=== PATIENT | male | born 1960 | race Caucasian/White ===

== ENCOUNTER → 2017-08-24 | Outpatient (CLI) | payer MEDICARE | LOC: M OUTALCOH 08:24 | DX: Z13.9 Encounter for screening, unspecified (principal); F10.20 Alcohol dependence, uncomplicated ==

== ENCOUNTER → 2018-04-27 | Outpatient (REF) | payer MEDICARE, OTHER ==
[2018-04-27 12:36] LABS: HEMATOCRIT 45.8 % (42.0-52.0); HEMOGLOBIN 16.1 g/dl (13.5-17.5); MEAN CORPUSCULAR HEMOGLOBIN 35.2 pg (27.0-33.0); MEAN CORPUSCULAR HGB CONC 35.2 g/dl (32.0-36.5); PLATELET COUNT, AUTOMATED 111 10^3/uL (150-450); RED BLOOD COUNT 4.58 10^6/uL (4.30-6.10); WHITE BLOOD COUNT 3.4 10^3/uL (4.0-10.0)
[2018-04-27 12:50] LABS: ALBUMIN 3.9 GM/DL (3.2-5.2); ALT/SGPT 195 U/L (12-78); BILIRUBIN,TOTAL 0.6 MG/DL (0.2-1.0); BLOOD UREA NITROGEN 9 MG/DL (7-18); CARBON DIOXIDE LEVEL 28 MEQ/L (21-32); CHLORIDE LEVEL 102 MEQ/L (98-107); CHOLESTEROL LEVEL 261 MG/DL (<200); CHOLESTEROL RISK RATIO 6.692 (<5); CREATININE FOR GFR 0.81 MG/DL (0.70-1.30); GLOMERULAR FILTRATION RATE > 60.0 (>56); GLUCOSE, FASTING 99 MG/DL (70-100); HDL CHOLESTEROL 39 MG/DL (>40); LDL CHOLESTEROL 189 MG/DL (<100); NON-HDL-C 222 MG/DL; POTASSIUM SERUM 4.3 MEQ/L (3.5-5.1); SODIUM LEVEL 138 MEQ/L (136-145); THYROID STIMULATING HORMONE 0.987 uIU/ML (0.358-3.740); TOTAL PROTEIN 8.3 GM/DL (6.4-8.2); TRIGLYCERIDES LEVEL 163 MG/DL (<150)
[2018-04-27 13:44] LABS: HEPATITIS C VIRUS ABY INDEX > 11.0 INDEX (<0.8)
[2018-05-02 14:09] LABS: CYCLIC CITRULLINATED PEPTIDE 9 units (0-19); HEPATITIS C QUANTITATION 221330 IU/mL (.); HEPATITIS C VIRUS GENOTYPE 1a (.)
== END ==
LOC: M SFHCPLAZ 10:32
PROVIDERS: ATTEND Nurse Practitioner Adult Health
DX: Z00.00 Encounter for general adult medical examination without abnormal findings (principal); Z13.220 Encounter for screening for lipoid disorders; F17.210 Nicotine dependence, cigarettes, uncomplicated; F32.9 Major depressive disorder, single episode, unspecified; G89.4 Chronic pain syndrome; F10.20 Alcohol dependence, uncomplicated; K22.719 Barrett's esophagus with dysplasia, unspecified; Z23 Encounter for immunization; M54.31 Sciatica, right side; I10 Essential (primary) hypertension; G47.00 Insomnia, unspecified; Q27.30 Arteriovenous malformation, site unspecified; Z86.19 Personal history of other infectious and parasitic diseases; Z87.39 Personal history of other diseases of the musculoskeletal system and connective tissue
CPT/HCPCS: 36415; 80053; 80061; 84443; 85027; 86200; 86431; 86803; 87521; 87522; 87902; 90682; 99406; G0008; G0463

== ENCOUNTER → 2018-06-02 | Outpatient (REF) | payer MEDICARE, OTHER ==
[2018-06-02 13:08] LABS: INR 0.95; PROTHROMBIN TIME 12.8 SECONDS (12.1-14.4)
[2018-06-03 08:41] LABS: HEPATITIS A IgG TOTAL Positive (Negative); HEPATITIS B CORE ANTIBODY IGG Negative (Negative)
[2018-06-03 14:46] LABS: HEPATITIS B SURFACE ANTIBODY NEGATIVE (POSITIVE); HEPATITIS B SURFACE ANTIGEN NEGATIVE (NEGATIVE)
[2018-06-13 08:55] LABS: HIV 1&2 SCREEN CENTAUR REACTIVE (NEGATIVE)
== END ==
LOC: M SFHCPLAZ 09:52
PROVIDERS: ATTEND Internal Medicine Infectious Disease
DX: B18.2 Chronic viral hepatitis C (principal); F32.9 Major depressive disorder, single episode, unspecified; Z86.59 Personal history of other mental and behavioral disorders
CPT/HCPCS: 36415; 82105; 85610; 86704; 86706; 86708; 87340; 87389; G0463

== ENCOUNTER → 2018-06-16 | Outpatient (REF) | payer OTHER | LOC: M SFHCPLAZ 13:23 | PROVIDERS: ATTEND Internal Medicine Infectious Disease | DX: B18.2 Chronic viral hepatitis C (principal) | CPT/HCPCS: 81596; 90471; 90739; G0463 ==

== ENCOUNTER → 2018-06-21 | Outpatient (CLI) | payer MEDICARE, OTHER ==
--- NOTE | 2018-06-21 10:27 | REP ---
Abdominal right upper quadrant ultrasound in a patient with hepatitis C: There are no comparisons. There are a few tiny gallbladder calculi. There is gallbladder wall thickening up to 5.7 mm, compatible with edema or fibrosis. There is no pericholecystic fluid. There is no intrahepatic or extrahepatic biliary duct dilatation. The common biliary duct measures 2.4 mm in diameter. The hepatic parenchyma is hyperechoic compatible with hepato steatosis. No hepatic masses are identified. The visualized areas of the pancreatic body and head are unremarkable. The right kidney measures 9.9 x 5.7 x 4.4 cm and is normal size. There is no right renal calculus, hydronephrosis, mass or cyst. Impression: Hepato steatosis. No hepatic masses are identified. Gallbladder wall thickening, edema versus fibrosis. There are a few small gallbladder calculi. No biliary duct dilatation. Electronically Signed by Jose Hernandez MD 06/21/2018 10:19 A
== END ==
LOC: M RAD 08:41
PROVIDERS: ATTEND Internal Medicine Infectious Disease
DX: B18.2 Chronic viral hepatitis C (principal); K80.20 Calculus of gallbladder without cholecystitis without obstruction; K75.81 Nonalcoholic steatohepatitis (NASH); K82.8 Other specified diseases of gallbladder

== ENCOUNTER → 2018-07-14 | Outpatient (REF) | payer OTHER | LOC: M SFHCPLAZ 10:23 | PROVIDERS: ATTEND Internal Medicine Infectious Disease | DX: B18.2 Chronic viral hepatitis C (principal); Z53.9 Procedure and treatment not carried out, unspecified reason ==

== ENCOUNTER → 2018-08-01 | Outpatient (CLI) | payer OTHER ==
[2018-08-01 12:30] LABS: PERCENT SATURATION 51.3 % (19.7-50.0)
[2018-08-02 14:12] LABS: CERULOPLASMIN 28.2 mg/dL (16.0-31.0)
[2018-08-04 00:10] LABS: AFP TUMOR TOTAL 4.4 ng/mL (0.0-8.0); ANCA-ATYPICAL <1:20 titer (Neg:<1:20); ANTI-MITOCHONDRIAL ANTIBODY <20.0 Units (0.0-20.0); ANTINUCLEAR ANTIBODIES DIRECT Negative (Negative); CYTOPLASMIC NEUTROP AB ANCA-C <1:20 titer (Neg:<1:20); PERINUCLEAR AB ANCA-P <1:20 titer (Neg:<1:20)
== END ==
LOC: M LAB 11:18
PROVIDERS: ATTEND Internal Medicine Gastroenterology
DX: K22.719 Barrett's esophagus with dysplasia, unspecified (principal); K70.30 Alcoholic cirrhosis of liver without ascites

== ENCOUNTER 2018-08-30 10:42 | Day surgery (SDC) | payer OTHER ==
[~2018-08-30] VITALS: Ht 175.3 cm; Wt 76.7 kg
[~2018-08-30 10:42] MED LIST: NS 1,000 ML IV ONE
[2018-08-30] MEDS ORDERED: TRAZ1TAB14 PO (11:45)
[2018-08-30] MEDS ORDERED: EPCL1TAB PO (11:45)
[2018-08-30] MEDS ORDERED: PROPOFOL 500 MG/50 ML VIAL As Ordered ONE (12:16)
[2018-08-30] MEDS ORDERED: LIDOCAINE 2% INJ 100 MG/5 ML SDV (FOR ANES.) As Ordered ONE (12:19)
--- NOTE | 2018-08-30 13:08 | ROOR ---
Patient Name: Vicente Kyle Procedure Date: 08/30/2018 12:53 PM Date of : 1960 Age: 58 Room: [facility] Gender: Male Note Status: Finalized Procedure: Upper GI endoscopy Indications: Surveillance for malignancy due to personal history of Schmidt's esophagus Providers: Hector GILLILAND MD Referring MD: Amelia CARDENAS NP Requesting Provider: Medicines: Monitored Anesthesia Care Complications: No immediate complications. Procedure: Pre-Anesthesia Assessment: - The heart rate, respiratory rate, oxygen saturations, blood pressure, adequacy of pulmonary ventilation, and response to care were monitored throughout the procedure. The Endoscope was introduced through the mouth, and advanced to the second part of duodenum. The upper GI endoscopy was accomplished without difficulty. The patient tolerated the procedure well. Findings: The Z-line was variable and was found 38 cm from the incisors. This was biopsied with a cold forceps for evaluation to rule out Schmidt's Esophagus. The examined esophagus was normal. Diffuse mild inflammation characterized by erythema was found in the entire examined stomach. Biopsies were taken with a cold forceps for Helicobacter pylori testing. Small Hiatal Hernia. The examined duodenum was normal. Impression: - Z-line variable, 38 cm from the incisors. Biopsied. - Normal esophagus. - Mild diffuse gastritis. Biopsied. - Small Hiatal Hernia. - Normal examined duodenum. Recommendation: - Use Prilosec (omeprazole) 40 mg PO daily. - Reduce/avoid alcohol consumption. Hector Gilliland MD Hector GILLILAND MD 08/30/2018 1:08:46 PM Electronically signed by Hector GILLILAND MD Number of Addenda: 0 Note Initiated On: 08/30/2018 12:53 PM Estimated Blood Loss: Estimated blood loss: none.
[2018-08-30] MEDS ORDERED: PROPOFOL 200 MG/20 ML VIAL As Ordered ONE (13:29)
--- NOTE | 2018-08-30 13:43 | ROOR ---
Patient Name: Vicente Kyle Procedure Date: 08/30/2018 12:52 PM Date of : 1960 Age: 58 Room: [facility] Gender: Male Note Status: Finalized Procedure: Colonoscopy Indications: Screening for colorectal malignant neoplasm Providers: Hector GILLILAND MD Referring MD: Amelia CARDENAS NP Requesting Provider: Medicines: Monitored Anesthesia Care Complications: No immediate complications. Procedure: Pre-Anesthesia Assessment: - The heart rate, respiratory rate, oxygen saturations, blood pressure, adequacy of pulmonary ventilation, and response to care were monitored throughout the procedure. The Colonoscope was introduced through the anus and advanced to the cecum, identified by appendiceal orifice and ileocecal valve. The colonoscopy was performed without difficulty. The patient tolerated the procedure well. The quality of the bowel preparation was adequate and fair. Findings: The perianal and digital rectal examinations were normal. Two sessile polyps were found in the cecum. The polyps were 5 to 8 mm in size. These polyps were removed with a piecemeal technique using a cold snare. Resection and retrieval were complete. Two sessile polyps were found in the hepatic flexure. The polyps were 5 to 7 mm in size. These polyps were removed with a cold snare. Resection and retrieval were complete. Two sessile polyps were found in the splenic flexure. The polyps were 5 to 7 mm in size. These polyps were removed with a cold snare. Resection and retrieval were complete. To prevent bleeding after the polypectomy, two hemostatic clips were successfully placed. There was no bleeding at the end of the procedure. Three sessile and semi-pedunculated polyps were found in the sigmoid colon. The polyps were 5 to 10 mm in size. These polyps were removed with a hot snare. Resection and retrieval were complete. To prevent bleeding after the polypectomy, two hemostatic clips were successfully placed. There was no bleeding at the end of the procedure. A 10 mm polyp was found in the recto-sigmoid colon. The polyp was semi-pedunculated. The polyp was removed with a hot snare. The polyp was removed with a piecemeal technique using a hot snare. Resection and retrieval were complete. To prevent bleeding after the polypectomy, one hemostatic clip was successfully placed. There was no bleeding at the end of the procedure. Impression: - Preparation of the colon was fair. - Two 5 to 8 mm polyps in the cecum, removed piecemeal using a cold snare. Resected and retrieved. - Two 5 to 7 mm polyps at the hepatic flexure, removed with a cold snare. Resected and retrieved. - Two 5 to 7 mm polyps at the splenic flexure, removed with a cold snare. Resected and retrieved. Clips were placed. - Three 5 to 10 mm polyps in the sigmoid colon, removed with a hot snare. Resected and retrieved. Clips were placed. - One 10 mm polyp at the recto-sigmoid colon, removed with a hot snare and removed piecemeal using a hot snare. Resected and retrieved. Clip was placed. Recommendation: - Repeat colonoscopy in 1 year for surveillance of multiple adenomas and for surveillance of polyps greater than 1 cm in size. - Telephone endoscopist for pathology results in 2 weeks. Hector Gilliland MD Hector GILLILAND MD 08/30/2018 1:43:20 PM Electronically signed by Hector GILLILAND MD Number of Addenda: 0 Note Initiated On: 08/30/2018 12:52 PM Estimated Blood Loss: Estimated blood loss: none.
[2018-08-30 14:12] VITALS: BP 136/77
== END 2018-08-30 15:05 | disposition home or self-care (01) ==
LOC: M OPP 10:42
PROVIDERS: ATTEND Internal Medicine Gastroenterology
DX: D12.0 Benign neoplasm of cecum (principal); D12.3 Benign neoplasm of transverse colon; D12.5 Benign neoplasm of sigmoid colon; D12.7 Benign neoplasm of rectosigmoid junction; K22.8 Other specified diseases of esophagus; K44.9 Diaphragmatic hernia without obstruction or gangrene; K22.70 Barrett's esophagus without dysplasia; Z12.11 Encounter for screening for malignant neoplasm of colon

== ENCOUNTER → 2018-10-14 | Outpatient (REF) | payer OTHER ==
[~2018-10-14] MED LIST changes: +EPCL1TAB PO; -NS 1,000 ML IV ONE; +TRAZ1TAB14 PO
[2018-10-14 11:39] LABS: ALBUMIN 4.1 GM/DL (3.2-5.2); BILIRUBIN,DIRECT 0.2 MG/DL (0.0-0.2); BILIRUBIN,TOTAL 0.6 MG/DL (0.2-1.0); TOTAL PROTEIN 7.9 GM/DL (6.4-8.2)
[2018-10-17 16:31] LABS: HEPATITIS C QUANTITATION HCV Not Detected IU/mL (.)
== END ==
LOC: M SFHCPLAZ 08:56
PROVIDERS: ATTEND Internal Medicine Infectious Disease
DX: B18.2 Chronic viral hepatitis C (principal)

== ENCOUNTER → 2018-11-02 | Outpatient (CLI) | payer OTHER ==
[~2018-11-02] MED LIST changes: +METHACHOLINE KIT (J7674) INH ONE
--- NOTE | 2018-11-02 10:19 | PFTRPT ---
Height: 69.00 Inches Weight: 161.00 Lbs BSA: 1.88 Diagnosis: F17.210 DATE OF PROCEDURE: 11/02/2018 ORDERED BY: Amelia Howell Spirometry: Study of excellent technical quality. Forced vital capacity normal. FEV1 is in proportion. Obstructive index is, therefore, normal. Flow Volume Loop: Expiratory limb of the flow volume loop is normal. Lung Volumes: Total lung capacity normal. Residual volume is in proportion. Diffusing Capacity: Diffusing capacity normal. Hemoglobin: No hemoglobin available for correction. Airway Mechanics: Airway resistance and conductance are normal. IMPRESSION: Normal study. MTDD
== END ==
LOC: M CARPUL 09:42
PROVIDERS: ATTEND Nurse Practitioner Adult Health
DX: F17.210 Nicotine dependence, cigarettes, uncomplicated (principal)

== ENCOUNTER → 2019-01-19 | Outpatient (REF) | payer OTHER ==
[~2019-01-19] MED LIST changes: -METHACHOLINE KIT (J7674) INH ONE
[2019-01-19 13:44] LABS: BASO % 0.9 % (0.0-1.0); EOS % 0.4 % (0.0-3.0); HEMATOCRIT 37.3 % (42.0-52.0); HEMOGLOBIN 13.8 g/dl (13.5-17.5); LYMPH # 0.8 10^3/uL (1.5-5.0); LYMPH % 17.9 % (24.0-44.0); MEAN CORPUSCULAR HEMOGLOBIN 36.1 pg (27.0-33.0); MEAN CORPUSCULAR VOLUME 97.6 fl (80.0-96.0); MONO # 0.5 10^3/uL (0.0-0.8); MONO % 10.6 % (0.0-5.0); NEUTROPHILS # 3.2 10^3/uL (1.5-8.5); NEUTROPHILS % 69.8 % (36.0-66.0); RED BLOOD COUNT 3.82 10^6/uL (4.30-6.10); WHITE BLOOD COUNT 4.6 10^3/uL (4.0-10.0)
[2019-01-19 13:49] LABS: INR 0.95; PROTHROMBIN TIME 12.4 SECONDS (11.8-14.0)
[2019-01-19 13:56] LABS: ALBUMIN 4.3 GM/DL (3.2-5.2); ALT/SGPT 183 U/L (12-78); BILIRUBIN,TOTAL 0.7 MG/DL (0.2-1.0); BLOOD UREA NITROGEN 6 MG/DL (7-18); CALCIUM LEVEL 8.9 MG/DL (8.5-10.1); CARBON DIOXIDE LEVEL 24 MEQ/L (21-32); CHLORIDE LEVEL 92 MEQ/L (98-107); GLOMERULAR FILTRATION RATE > 60.0 (>56); GLUCOSE, FASTING 86 MG/DL (70-100); POTASSIUM SERUM 3.5 MEQ/L (3.5-5.1); SODIUM LEVEL 127 MEQ/L (136-145); TOTAL PROTEIN 7.9 GM/DL (6.4-8.2)
[2019-01-19 14:32] LABS: PLATELET COUNT, AUTOMATED 71 10^3/uL (150-450)
[2019-01-23 14:07] LABS: HEPATITIS C QUANTITATION HCV Not Detected IU/mL (.)
== END ==
LOC: M SFHCPLAZ 11:45
PROVIDERS: ATTEND Internal Medicine Infectious Disease
DX: B18.2 Chronic viral hepatitis C (principal)

== ENCOUNTER → 2019-05-24 | Outpatient (REF) | payer OTHER ==
[2019-05-24 13:18] LABS: C REACTIVE PROTEIN QUANTITATIV < 0.30 MG/DL (0.00-0.30); RHEUMATOID FACTOR QUANT 61.7 IU/ML (<15.0)
== END ==
LOC: M SFHCRHEU 10:49
PROVIDERS: ATTEND Internal Medicine
DX: R76.8 Other specified abnormal immunological findings in serum (principal)
CPT/HCPCS: 36415; 85652; 86140; 86431; G0463

== ENCOUNTER → 2019-06-01 | Outpatient (REF) | payer OTHER ==
[2019-06-01 12:28] LABS: ALBUMIN 3.8 GM/DL (3.2-5.2); ALT/SGPT 23 U/L (12-78); BILIRUBIN,TOTAL 0.5 MG/DL (0.2-1.0); BLOOD UREA NITROGEN 6 MG/DL (7-18); CALCIUM LEVEL 8.9 MG/DL (8.5-10.1); CARBON DIOXIDE LEVEL 27 MEQ/L (21-32); CHLORIDE LEVEL 104 MEQ/L (98-107); CREATININE FOR GFR 0.79 MG/DL (0.70-1.30); GLOMERULAR FILTRATION RATE > 60.0 (>56); GLUCOSE, FASTING 86 MG/DL (70-100); POTASSIUM SERUM 4.4 MEQ/L (3.5-5.1); SODIUM LEVEL 138 MEQ/L (136-145); TOTAL PROTEIN 7.1 GM/DL (6.4-8.2)
== END ==
LOC: M SFHCPLAZ 10:38
PROVIDERS: ATTEND Nurse Practitioner Adult Health
DX: K70.30 Alcoholic cirrhosis of liver without ascites (principal)

== ENCOUNTER → 2019-06-01 | Outpatient (CLI) | payer OTHER ==
--- NOTE | 2019-06-02 01:52 | REP ---
Clinical: Osteoarthritis. Technique: AP, lateral, bilateral oblique views of the right and left hand. Findings: Right hand demonstrates mild arthritic changes at the interphalangeal joints with increased sclerosis, minimal joint space narrowing, and very early marginal spurring. Mild arthritic changes are also identified at the fifth metacarpal base with subtle cortical irregularity and small erosive changes. Mild arthritic change at the first metacarpophalangeal joint subtle subchondral sclerosis. Left hand demonstrates mild arthritic changes at the interphalangeal joints with increased sclerosis, minimal joint space narrowing, and very early marginal spurring. Mild arthritic change at the first metacarpophalangeal joint subtle subchondral sclerosis. Impression: Mild arthritic changes. Electronically Signed by Truong Doss MD 06/02/2019 01:43 A
--- NOTE | 2019-06-02 02:39 | REP ---
Clinical: Osteoarthritis. Technique: AP, lateral, bilateral oblique views of the right and left foot. Findings: Right foot demonstrates subchondral sclerosis with joint space narrowing involving the interphalangeal joints as well as sclerosis with joint space narrowing and spurring at the first metatarsophalangeal joint. No acute fracture or dislocation. Age-related changes to the midfoot. Left foot demonstrates moderate sclerosis with joint space narrowing and spurring at the first metatarsophalangeal joint with minimal subchondral sclerosis at the interphalangeal joints. No acute fracture or dislocation. Impression: Arthritic changes primarily involving the bilateral first MTP joints. Electronically Signed by Truong Doss MD 06/02/2019 02:32 A
== END ==
LOC: M RAD 11:17
PROVIDERS: ATTEND Internal Medicine
DX: M15.9 Polyosteoarthritis, unspecified (principal); K70.30 Alcoholic cirrhosis of liver without ascites
CPT/HCPCS: 36415; 73130; 73630; 80053; G0463

== ENCOUNTER 2019-09-30 17:28 | Emergency (ER) | payer OTHER ==
[~2019-09-30] VITALS: Ht 175.3 cm; Wt 75.0 kg
[2019-09-30 17:30] VITALS: BP 129/67
[2019-09-30] MEDS ORDERED: LORA-674 (17:39)
[2019-09-30] MEDS ORDERED: METH10TA2 (17:39)
[2019-09-30] MEDS ORDERED: OMEP-221 (17:39)
[2019-09-30] MEDS ORDERED: APTI1TAB4 (17:42)
[2019-09-30] MEDS ORDERED: DIAZ5TAB (17:42)
[2019-09-30] MEDS ORDERED: LIDOCAINE 1% MDV 20ML VIAL SC ONE (17:45)
--- NOTE | 2019-10-01 09:13 | REP ---
Clinical: Trauma. Laceration. Technique: AP, lateral, bilateral oblique views left hand . Findings: The osseous structures and joint spaces are intact and normal. There is no evidence for acute fracture or dislocation. Surrounding soft tissues are unremarkable. No subcutaneous emphysema or radiodense foreign body. Impression: No subcutaneous emphysema or foreign body. No acute fracture or dislocation. Electronically Signed by Truong Doss MD 10/01/2019 08:17 A
== END 2019-09-30 18:33 | disposition home or self-care (01) ==
LOC: M ED 17:28
DX: S61.412A Laceration without foreign body of left hand, initial encounter (principal); W31.2XXA Contact with powered woodworking and forming machines, initial encounter; Y92.098 Other place in other non-institutional residence as the place of occurrence of the external cause; F17.210 Nicotine dependence, cigarettes, uncomplicated; Z79.899 Other long term (current) drug therapy

== ENCOUNTER 2019-12-05 02:18 | Inpatient (IN) | payer OTHER ==
[~2019-12-05 02:18] MED LIST changes: +APTI1TAB4; +DIAZ5TAB; +LORA-674; +METH10TA2; +OMEP-221
[2019-12-06] MEDS ORDERED: levETIRAcetam 250MG TABLET (KEPPRA) ONE ×2 (01:55→08:34)
[2019-12-06] MEDS ORDERED: levETIRAcetam 250MG TABLET (KEPPRA) As Ordered ONE ×2 (01:55→08:35)
[2019-12-06] MEDS ORDERED: METHADONE 5 MG TAB (S0109) ONE (08:34)
[2019-12-06] MEDS ORDERED: OMEPRAZOLE 20 MG CAP ONE (08:34)
[2019-12-06] MEDS ORDERED: METHADONE 10 MG TAB (S0109) ONE (08:34)
[2019-12-06] MEDS ORDERED: LORATADINE 10 MG TAB ONE (08:34)
[2019-12-06] MEDS ORDERED: METHADONE 10 MG TAB (S0109) As Ordered ONE (08:34)
[2019-12-06] MEDS ORDERED: OMEPRAZOLE 20 MG CAP As Ordered ONE (08:35)
[2019-12-06] MEDS ORDERED: METHADONE 5 MG TAB (S0109) As Ordered ONE (08:35)
[2019-12-06] MEDS ORDERED: LORATADINE 10 MG TAB As Ordered ONE (08:36)
[2019-12-06] MEDS ORDERED: OXAZEPAM 15 MG CAP As Ordered ONE (12:50)
[2019-12-06] MEDS ORDERED: OXAZEPAM 15 MG CAP ONE (13:50)
[2019-12-06] MEDS ORDERED: cloNIDine 0.1 MG TAB As Ordered ONE (18:30)
[2019-12-06] MEDS ORDERED: cloNIDine 0.1 MG TAB ONE (18:30)
[2019-12-06] MEDS ORDERED: traZODone 50 MG TAB ONE (20:49)
[2019-12-06] MEDS ORDERED: THIAMINE 100 MG TAB ONE (20:49)
[2019-12-06] MEDS ORDERED: traZODone 50 MG TAB As Ordered ONE (20:49)
[2019-12-06] MEDS ORDERED: THIAMINE 100 MG TAB As Ordered ONE (20:49)
[2019-12-07] MEDS ORDERED: FOLIC ACID 1 MG TAB ONE (08:36)
[2019-12-07] MEDS ORDERED: FOLIC ACID 1 MG TAB As Ordered ONE (08:36)
[2019-12-07] MEDS ORDERED: NICOTINE 21MG/24HR 1 EA TRANSDERMAL ONE (08:36)
[2019-12-07] MEDS ORDERED: MULTIVITAMINS/MINERALS THERAP 1 TAB ONE (08:36)
[2019-12-07] MEDS ORDERED: THIAMINE 100 MG TAB As Ordered ONE (08:36)
[2019-12-07] MEDS ORDERED: MULTIVITAMINS/MINERALS THERAP 1 TAB As Ordered ONE (08:36)
[2019-12-07] MEDS ORDERED: THIAMINE 100 MG TAB ONE (08:36)
[2019-12-07] MEDS ORDERED: NICOTINE 21MG/24HR 1 EA TRANSDERMAL As Ordered ONE (08:37)
[2019-12-07] MEDS ORDERED: METHADONE 10 MG TAB (S0109) As Ordered ONE ×3 (14:33→20:41)
[2019-12-07] MEDS ORDERED: METHADONE 10 MG TAB (S0109) ONE ×2 (14:33→20:41)
[2019-12-07] MEDS ORDERED: levETIRAcetam 250MG TABLET (KEPPRA) As Ordered ONE ×3 (14:34→20:41)
[2019-12-07] MEDS ORDERED: levETIRAcetam 250MG TABLET (KEPPRA) ONE ×2 (14:34→20:41)
[2019-12-07] MEDS ORDERED: traZODone 50 MG TAB As Ordered ONE (21:24)
[2019-12-07] MEDS ORDERED: traZODone 50 MG TAB ONE (21:24)
[2019-12-08] MEDS ORDERED: levETIRAcetam 250MG TABLET (KEPPRA) ONE (08:33)
[2019-12-08] MEDS ORDERED: MULTIVITAMINS/MINERALS THERAP 1 TAB ONE (08:33)
[2019-12-08] MEDS ORDERED: METHADONE 10 MG TAB (S0109) As Ordered ONE (08:33)
[2019-12-08] MEDS ORDERED: levETIRAcetam 250MG TABLET (KEPPRA) As Ordered ONE (08:33)
[2019-12-08] MEDS ORDERED: METHADONE 10 MG TAB (S0109) ONE (08:33)
[2019-12-08] MEDS ORDERED: FOLIC ACID 1 MG TAB ONE (08:33)
[2019-12-08] MEDS ORDERED: NICOTINE 21MG/24HR 1 EA TRANSDERMAL ONE (08:33)
[2019-12-08] MEDS ORDERED: THIAMINE 100 MG TAB ONE (08:33)
[2019-12-08] MEDS ORDERED: THIAMINE 100 MG TAB As Ordered ONE (09:29)
[2019-12-08] MEDS ORDERED: MULTIVITAMINS/MINERALS THERAP 1 TAB As Ordered ONE (09:29)
[2019-12-08] MEDS ORDERED: FOLIC ACID 1 MG TAB As Ordered ONE (09:30)
[2019-12-08] MEDS ORDERED: NICOTINE 21MG/24HR 1 EA TRANSDERMAL As Ordered ONE (09:30)
[2020-01-14 10:24] LABS: HEMATOCRIT 39.5 % (42.0-52.0); MEAN CORPUSCULAR HEMOGLOBIN 35.3 pg (27.0-33.0); MEAN CORPUSCULAR HGB CONC 35.4 g/dl (32.0-36.5); MEAN CORPUSCULAR VOLUME 99.5 fl (80.0-96.0); PLATELET COUNT, AUTOMATED 113 10^3/uL (150-450); RED BLOOD COUNT 3.97 10^6/uL (4.30-6.10); WHITE BLOOD COUNT 5.1 10^3/uL (4.0-10.0)
[2020-02-18 11:28] LABS: ACETAMINOPHEN LEVEL < 2.0 UG/ML (10.0-30.0); ALBUMIN 4.3 GM/DL (3.2-5.2); ALT/SGPT 22 U/L (12-78); AMPHETAMINES LEVEL URINE NEGATIVE (NEGATIVE); BARBITURATES URINE NEGATIVE (NEGATIVE); BENZODIAZEPINES URINE NEGATIVE (NEGATIVE); BILIRUBIN,DIRECT 0.1 MG/DL (0.0-0.2); BILIRUBIN,TOTAL 0.4 MG/DL (0.2-1.0); BLOOD UREA NITROGEN 7 MG/DL (7-18); CALCIUM LEVEL 8.6 MG/DL (8.5-10.1); CANNABINOIDS URINE POSITIVE (NEGATIVE); CARBON DIOXIDE LEVEL 22 MEQ/L (21-32); CHLORIDE LEVEL 107 MEQ/L (98-107); COCAINE METABOLITE URINE NEGATIVE (NEGATIVE); CREATININE FOR GFR 0.81 MG/DL (0.70-1.30); ETHYL ALCOHOL (ETHANOL) 0.352 % (0.000-0.010); GLOMERULAR FILTRATION RATE > 60.0 (>56); GLUCOSE, FASTING 80 MG/DL (70-100); METHADONE URINE POSITIVE (NEGATIVE); OPIATES URINE NEGATIVE (NEGATIVE); PHENCYCLIDINE URINE NEGATIVE (NEGATIVE); SALICYLATE LEVEL 7.6 MG/DL (5.0-30.0); SODIUM LEVEL 137 MEQ/L (136-145); THYROID STIMULATING HORMONE 0.849 uIU/ML (0.358-3.740)
== END 2019-12-08 12:30 | disposition home or self-care (01) | DRG 885 ==
LOC: M ED 02:18 → M PSY 12-06 13:30
PROVIDERS: ADMIT Psychiatry & Neurology Addiction Medicine; ATTEND Psychiatry & Neurology Addiction Medicine
DX: F31.2 Bipolar disorder, current episode manic severe with psychotic features (principal); F10.20 Alcohol dependence, uncomplicated; Z79.899 Other long term (current) drug therapy; G89.4 Chronic pain syndrome; M19.90 Unspecified osteoarthritis, unspecified site; F17.200 Nicotine dependence, unspecified, uncomplicated; M54.5 Low back pain

== ENCOUNTER 2020-01-12 08:54 | Day surgery (SDC) | payer OTHER ==
[~2020-01-12] VITALS: Ht 175.3 cm; Wt 72.9 kg
[~2020-01-12 08:54] MED LIST changes: +LIDOCAINE 2% 100MG/5ML SDV (FOR ANES.) As Ordered ONE; +NS 1,000 ML IV ONE; +propofoL 200 MG/20 ML VIAL As Ordered ONE
[2020-01-12] MEDS ORDERED: OXCA150T21 PO (10:11)
[2020-01-12] MEDS ORDERED: DICL1GEL3 TOP (10:11)
[2020-01-12] MEDS ORDERED: GLUCAGON INJ 1MG VIAL As Ordered ONE (10:38)
[2020-01-12] MEDS ORDERED: propofoL 200 MG/20 ML VIAL As Ordered ONE (10:47)
[2020-01-12 11:23] VITALS: BP 132/73
--- NOTE | 2020-01-17 11:37 | ROOR ---
Patient Name: Vicente Kyle Procedure Date: 01/12/2020 10:29 AM Date of : 1960 Age: 59 Room: [facility] Gender: Male Note Status: Finalized Procedure: Colonoscopy Indications: High risk colon cancer surveillance: Personal history of colonic polyps Providers: Hector GILLILAND MD Referring MD: Amelia CARDENAS NP Requesting Provider: Medicines: Monitored Anesthesia Care Complications: No immediate complications. Procedure: Pre-Anesthesia Assessment: - The heart rate, respiratory rate, oxygen saturations, blood pressure, adequacy of pulmonary ventilation, and response to care were monitored throughout the procedure. The Colonoscope was introduced through the anus and advanced to the cecum, identified by appendiceal orifice and ileocecal valve. The colonoscopy was performed without difficulty. The patient tolerated the procedure well. The quality of the bowel preparation was good. Findings: The perianal and digital rectal examinations were normal. A 4 mm polyp was found in the splenic flexure. The polyp was sessile. The polyp was removed with a cold snare. Resection and retrieval were complete. The ileocecal valve was moderately lipomatous. Biopsies were taken with a cold forceps for histology. A single localized non-bleeding erosion was found in the proximal sigmoid colon. This was biopsied with a cold forceps for histology. Mild sigmoid diverticulosis and small internal hemorrhoids. Impression: - One 4 mm polyp at the splenic flexure, removed with a cold snare. Resected and retrieved. - Lipomatous/prominent ileocecal valve. Biopsied. - A single erosion in the proximal sigmoid colon. Biopsied. - Mild sigmoid diverticulosis and small internal hemorrhoids. - The exam was otherwise normal to the cecum. Recommendation: - Telephone endoscopist for pathology results in 2 weeks. - Repeat colonoscopy for surveillance based on pathology results. Hector Gilliland MD Hector GILLILAND MD 01/12/2020 10:57:53 AM Electronically signed by Hector GILLILAND MD Number of Addenda: 0 Note Initiated On: 01/12/2020 10:29 AM Estimated Blood Loss: Estimated blood loss: none.
== END 2020-01-12 11:24 | disposition home or self-care (01) ==
LOC: M OPP 08:54
PROVIDERS: ATTEND Internal Medicine Gastroenterology
DX: Z86.010 Personal history of colon polyps (principal); K63.5 Polyp of colon; K63.89 Other specified diseases of intestine; K63.3 Ulcer of intestine; Z09 Encounter for follow-up examination after completed treatment for conditions other than malignant neoplasm; G89.4 Chronic pain syndrome; F17.210 Nicotine dependence, cigarettes, uncomplicated; Z79.899 Other long term (current) drug therapy
CPT/HCPCS: 45380; 45385; 88305; J1610; U0002